=== PATIENT | female | born 1965 | race Caucasian/White ===

== ENCOUNTER 2020-02-11 12:09 | Emergency (ER) | payer MEDICARE ==
[~2020-02-11] VITALS: Ht 167.6 cm; Wt 83.9 kg
[~2020-02-11 12:09] MED LIST: FENOFIBRATE145 MG PO; LISINOPRIL10 MG PO; METHOTREXA25 MG/1 ML; NORCO 5-325 TA1 EACH PO; ULTRAM 50MG50 MG PO
--- OUTSIDE RECORDS SUMMARY | 2020-02-11 12:11 | XMS REPORT ---
[facility] Address Unknown Phone Unavailable Care Team Providers Care Contact Lens Lathe Operator Name Role Phone ER, PHYSICIAN PP Unavailable Payers Payer Name Policy Type Policy Number Effective Date Expiration Date Problems This patient has no known problems. Allergies, Adverse Reactions, Alerts Allergy Name Allergy Type Status Severity Reaction(s) Onset Date Inactive Date Treating Clinician Comments ibuprofen DA Active SV 2019-06-26 00:00:00 strawberry FA Active SV 2019-06-26 00:00:00 ibuprofen DA Active SV 2019-04-06 00:00:00 strawberry FA Active SV 2019-04-06 00:00:00 No Known Contrast Allergies DA Active U 2007-06-28 00:00:00 No Known Drug Allergies DA Active U 2007-06-28 00:00:00 No Known Food Allergies DA Active U 2007-06-28 00:00:00 No Known Other Allergies DA Active U 2007-06-28 00:00:00 No Known Drug Intolerances DA Active U 2007-06-27 00:00:00 Medications This patient has no known medications. Encounters Start Date/Time End Date/Time Encounter Type Admission Type Attending Clinicians Care Facility Care Department Encounter ID 2017-08-12 18:36:00 Inpatient [facility] MED [id number] Results Test Description Test Time Test Comments Text Results Atomic Results Result Comments - XR FLUOROSCOPY 0-60 MIN 2019-06-26 11:40:00 FAX: Cali Rich [phone] Stuart: St: REG FAX: Kisha Robin Ron [phone] Name: ROSLYN CRAIG [facility] : 1965 Age/S: 53/F [address] [place] [address] Unit #: [id number] Loc: [place] [address] Phys: Cali Young DPM Acct: [id number] Dis Date: Status: REG [facility] PHONE #: [phone] Exam Date: 06/26/2019 1135 FAX #: [phone] Reason: LEFT TALUS FRACTURE EXAMS: CPT CODE: [id number] XR FLUOROSCOPY 0-60 MIN 90202 Fluoroscopic guidance was provided by the radiology department for intraoperative procedure. Any images obtained will be interpreted by the performing physician. Fluoro time: 151 seconds. Reference air kerma: 2.30 mGy. END OF IMPRESSION SL: [id number] at 1140 Reported and signed by: Wali Carroll M.D. CC: Cail Young DPM; Robin Ron DO Techn ologist: RT Cipriano(Amelia) Trnscrd Date/Time/By: 06/26/2019 (1664) : By: Tor Orig Print D/T: S: 06/26/2019 (7185) PAGE 1 Signed Report HCG SERUM QUAL 2019-06-26 10:06:00 HCG SERUM QUAL (test code=HCGQL) SERUM NEGATIVE NEGATIVE COMMENTS: PRE-OP PROTOCALCBC W/AUTO [id number] 14:04:00* Test Item Value Reference Range Comments WHITE BLOOD CELL (test code=WBC) 11.62 x10 3/uL 4.5-11.0 RED BLOOD CELL (test code=RBC) 3.45 x10 6/uL 3.54-5.02 HEMOGLOBIN (test code=HGB) 10.8 g/dL 11.0-15.0 HEMATOCRIT (test code=HCT) 33.9 % 33.0-45.0 MEAN CELL VOLUME (test code=MCV) 98.3 fL 81.0-99.0 MEAN CELL HGB (test code=MCH) 31.3 pg 27.0-33.0 MEAN CELL HGB CONCETRATION (test code=MCHC) 31.9 g/dL 33.0-37.0 RED CELL DISTRIBUTION WIDTH CV (test code=RDW) 17.3 % 11.5-14.5 RED CELL DISTRIBUTION WIDTH SD (test code=RDW-SD) 60.0 fL 37.0-54.0 PLATELET COUNT (test code=PLT) 480 x10 3/uL 150-400 MEAN PLATELET VOLUME (test code=MPV) 10.8 fL 7.0-9.0 NEUTROPHIL % (test code=NT%) 52.9 % 56.0-77.0 IMMATURE GRANULOCYTE % (test code=IG%) 0.7 % 0.0-2.0 LYMPHOCYTE % (test code=LY%) 38.1 % 14.0-32.0 MONOCYTE % (test code=MO%) 6.2 % 4.8-9.0 EOSINOPHIL % (test code=EO%) 1.7 % 0.3-3.7 BASOPHIL % (test code=BA%) 0.4 % 0.0-2.0 NUCLEATED RBC % (test code=NRBC%) 0.0 % 0-0 NEUTROPHIL # (test code=NT#) 6.14 x10 3/uL 2.0-7.6 IMMATURE GRANULOCYTE # (test code=IG#) 0.08 x10 3/uL 0.00-0.03 LYMPHOCYTE # (test code=LY#) 4.43 x10 3/uL 1.0-3.8 MONOCYTE # (test code=MO#) 0.72 x10 3/uL 0.1-0.8 EOSINOPHIL # (test code=EO#) 0.20 x10 3/uL 0.0-0.2 BASOPHIL # (test code=BA#) 0.05 x10 3/uL 0.0-0.2 NUCLEATED RBC # (test code=NRBC#) 0.00 x10 3/uL 0.0-0.1 MANUAL DIFF REQUIRED (test code=MDIFF) NO SLIDE REVIEWED, CONSISTENT WITH AUTO DIFF.Previously reported result: NO Edited by: DEUCE on 06/20/19:426586 1403: MAN DIFF NEEDED previously reported as: NO - XR CHEST 2 [id number] 13:31:00 FAX: Cali Rich [phone] Stuart: St: PRE FAX: Robin Way [phone] FAX: Mague Askew Name: ROSLYN CRAIG [facility] : 1965 Age/S: 53/F [address] [place] [address] Unit #: [id number] Loc: [place] [address] Phys: Mague Askew S[employer]ER Acct: [id number] Dis Date: Status: PRE SDC PH ONE #: [phone] Exam Date: 06/20/2019 1323 FAX #: [phone] Reason: PRE-OP ORIF TALAR FRACTURE EXAMS: CPT CODE: [id number] XR CHEST 2 V 29918 CLINICAL HISTO RY: PRE-OP ORIF TALAR FRACTURE COMPARISON: April 06, 2019 at 1103 PA and lateral films of the chest demonstrate that heart size is normal. Interstitial opacities are present bilaterally, unchanged since previous examination. Calcified granuloma is noted on the right side. B lunting of left costophrenic angle is pronounced on current examination in dicating class pleural effusion. No other significant interval change is noted. IMPRESSION: 1. Persistent bilateral interstitial opacities, unchanged since previous examination. 2. Decreased pleural effusion compared to previous examination. Electronically Si gned by Meli Bob on 06/20/2019 at 1331 Reported and signed by: Lan Bob M.D. CC: Cali Young DPM; Robin Ron DO; Mague Askew NP Technologist: RT Cipriano(Amelia) Trnscrd Date/Time/By: 06/20/2019 (6314) : By: Curt Orig Print D/T: S: 06/20/2019 (3728) PAGE 1 Signed Report BASIC METABOLIC [id number] 13:04:00* Test Item Value Reference Range Comments SODIUM (test code=NA) 141 mEq/L 134-147 POTASSIUM (test code=K) 4.0 mEq/L 3.4-5.0 CHLORIDE (test code=CL) 109 mEq/L 100-108 CARBON DIOXIDE (test code=CO2) 27 mEq/L 21-33 ANION GAP (test code=GAP) 9 0-20 GLUCOSE (test code=GLU) 82 mg/dL 70-110 BLOOD UREA NITROGEN (test code=BUN) 20 mg/dL 7-18 GLOMERULAR FILTRATION RATE (test code=GFR) 46.6 90-95 Units of measure=ml/min/1.73 m2 CREATININE (test code=CREAT) 1.2 mg/dL 0.6-1.3 CALCIUM (test code=CA) 8.9 mg/dL 8.0-10.5 HCG SERUM [id number] 13:04:00* Test Item Value Reference Range Comments HCG SERUM QUAL (test code=HCGQL) SERUM NEGATIVE NEGATIVE CBC W/AUTO [id number] 13:03:00* Test Item Value Reference Range Comments WHITE BLOOD CELL (test code=WBC) 11.62 x10 3/uL 4.5-11.0 RED BLOOD CELL (test code=RBC) 3.45 x10 6/uL 3.54-5.02 HEMOGLOBIN (test code=HGB) 10.8 g/dL 11.0-15.0 HEMATOCRIT (test code=HCT) 33.9 % 33.0-45.0 MEAN CELL VOLUME (test code=MCV) 98.3 fL 81.0-99.0 MEAN CELL HGB (test code=MCH) 31.3 pg 27.0-33.0 MEAN CELL HGB CONCETRATION (test code=MCHC) 31.9 g/dL 33.0-37.0 RED CELL DISTRIBUTION WIDTH CV (test code=RDW) 17.3 % 11.5-14.5 RED CELL DISTRIBUTION WIDTH SD (test code=RDW-SD) 60.0 fL 37.0-54.0 PLATELET COUNT (test code=PLT) 480 x10 3/uL 150-400 MEAN PLATELET VOLUME (test code=MPV) 10.8 fL 7.0-9.0 NEUTROPHIL % (test code=NT%) 52.9 % 56.0-77.0 IMMATURE GRANULOCYTE % (test code=IG%) 0.7 % 0.0-2.0 LYMPHOCYTE % (test code=LY%) 38.1 % 14.0-32.0 MONOCYTE % (test code=MO%) 6.2 % 4.8-9.0 EOSINOPHIL % (test code=EO%) 1.7 % 0.3-3.7 BASOPHIL % (test code=BA%) 0.4 % 0.0-2.0 NUCLEATED RBC % (test code=NRBC%) 0.0 % 0-0 NEUTROPHIL # (test code=NT#) 6.14 x10 3/uL 2.0-7.6 IMMATURE GRANULOCYTE # (test code=IG#) 0.08 x10 3/uL 0.00-0.03 LYMPHOCYTE # (test code=LY#) 4.43 x10 3/uL 1.0-3.8 MONOCYTE # (test code=MO#) 0.72 x10 3/uL 0.1-0.8 EOSINOPHIL # (test code=EO#) 0.20 x10 3/uL 0.0-0.2 BASOPHIL # (test code=BA#) 0.05 x10 3/uL 0.0-0.2 NUCLEATED RBC # (test code=NRBC#) 0.00 x10 3/uL 0.0-0.1 MANUAL DIFF REQUIRED (test code=MDIFF) NO BASIC METABOLIC [id number] 12:57:00* Test Item Value Reference Range Comments SODIUM (test code=NA) mEq/L 134-147 POTASSIUM (test code=K) mEq/L 3.4-5.0 CHLORIDE (test code=CL) mEq/L 100-108 CARBON DIOXIDE (test code=CO2) mEq/L 21-33 ANION GAP (test code=GAP) 0-20 GLUCOSE (test code=GLU) mg/dL 70-110 BLOOD UREA NITROGEN (test code=BUN) mg/dL 7-18 GLOMERULAR FILTRATION RATE (test code=GFR) 90-95 CREATININE (test code=CREAT) mg/dL 0.6-1.3 CALCIUM (test code=CA) mg/dL 8.0-10.5 HCG SERUM [id number] 12:57:00* Test Item Value Reference Range Comments HCG SERUM QUAL (test code=HCGQL) SERUM NEGATIVE NEGATIVE - CT CHEST W/O [id number] 12:51:00 Name: ROSLYN CRAIG [facility] : 1965 Age/S: 53 / F [address] Unit #: [id number] Loc: [place] [address] Phys: Mainor Horner MD Acct: [id number] Dis Date: Status: REG CLI PHONE #: [phone] Exam Date: 06/06/2019 1224 FAX #: [phone] Reason: ABNORMAL FINDINGS EXAMS: CPT CODE: [id number] CT CHEST W/O CONTRAST 17569 TECHNIQUE: - CT CHEST W/O CONTRAST . This exam was performed using one or more of the following dose reduction techniques: Automated exposure control, adjustment of the mA and/ or kV according to patient size or use of iterative reconstruction technique. COMPARISON: Chest x-ray 04/06/2019 HISTORY: 53 years Female ABNORMAL FINDINGS FINDINGS: Lungs: Small left effusion. Left basilar atelectasis. Coarse densities bilaterally suggesting moderate to severe interstitial fibrosis most prominent in upper lobes. Severe emphysema. 5 mm calcified granuloma right midlung field anteriorly. 4 mm density subpleural space right upper lobe anteriorly. Series 3. Image 19. Mediastinum and Floridalma: No significant lymphadenopathy. No mediastinal or hilar mass. Small hiatal hernia. Pleura: No calcifications, thickening, or pneumothorax. Cardiovascular: Age appropriate. No significant abnormalities. Visualized Upper Abdomen: No sig nificant findings. Chest wall and bony structures: No abnormaliti es. IMPRESSION: Small left effusion. L eft basilar atelectasis. Coarse densities bilaterally suggesting moderat e to severe interstitial fibrosis most prominent in upper lobes. Severe emphysema. 4 mm density subpleural space right upper lobe anteriorly. Se min 3. Image 19. PAGE 1 Signed Report (CONTINUED) Name: ROSLYN CRAIG [facility] : 1965 Age/S: 53 / F [place] Moreno Unit #: [id number] Loc: [place] [address] Phys: Mainor Horner MD Acct: [id number] Dis Date: Status: REG CLI PHONE #: [phone] Exam Date: 06/06/2019 1224 FAX #: [phone] Reason: ABNORMAL FINDINGS EXAMS: CPT CODE: [id number] CT CHEST W/O CONTRAST 73947 < Continued> at 1251 Reported and signed by: Rocky To M.D. CC: Mainor Horner MD; Robin Ron Technologist:RT Rodney(R),CT CTDI: DLP: Trnscb Date/Time: 06/06/2019 (8341) t.TACOO Orig Print D/T: S: 06/06/2019 (7055) PAGE 2 Signed Report BASIC METABOLIC [id number] 13:16:00* Test Item Value Reference Range Comments SODIUM (test code=NA) 143 mEq/L 134-147 POTASSIUM (test code=K) 5.1 mEq/L 3.4-5.0 CHLORIDE (test code=CL) 113 mEq/L 100-108 CARBON DIOXIDE (test code=CO2) 24 mEq/L 21-33 ANION GAP (test code=GAP) 11 0-20 GLUCOSE (test code=GLU) 113 mg/dL 70-110 BLOOD UREA NITROGEN (test code=BUN) 20 mg/dL 7-18 GLOMERULAR FILTRATION RATE (test code=GFR) 46.6 90-95 Units of measure=ml/min/1.73 m2 CREATININE (test code=CREAT) 1.2 mg/dL 0.6-1.3 CALCIUM (test code=CA) 8.9 mg/dL 8.0-10.5 HCG SERUM [id number] 13:16:00* Test Item Value Reference Range Comments HCG SERUM QUAL (test code=HCGQL) SERUM NEGATIVE NEGATIVE BASIC METABOLIC [id number] 12:35:00* Test Item Value Reference Range Comments SODIUM (test code=NA) mEq/L 134-147 POTASSIUM (test code=K) mEq/L 3.4-5.0 CHLORIDE (test code=CL) mEq/L 100-108 CARBON DIOXIDE (test code=CO2) mEq/L 21-33 ANION GAP (test code=GAP) 0-20 GLUCOSE (test code=GLU) mg/dL 70-110 BLOOD UREA NITROGEN (test code=BUN) mg/dL 7-18 GLOMERULAR FILTRATION RATE (test code=GFR) 90-95 CREATININE (test code=CREAT) mg/dL 0.6-1.3 CALCIUM (test code=CA) mg/dL 8.0-10.5 HCG SERUM [id number] 12:35:00* Test Item Value Reference Range Comments HCG SERUM QUAL (test code=HCGQL) SERUM NEGATIVE NEGATIVE CBC W/AUTO [id number] 12:19:00* Test Item Value Reference Range Comments WHITE BLOOD CELL (test code=WBC) 13.35 x10 3/uL 4.5-11.0 RED BLOOD CELL (test code=RBC) 3.26 x10 6/uL 3.54-5.02 HEMOGLOBIN (test code=HGB) 10.3 g/dL 11.0-15.0 HEMATOCRIT (test code=HCT) 32.4 % 33.0-45.0 MEAN CELL VOLUME (test code=MCV) 99.4 fL 81.0-99.0 MEAN CELL HGB (test code=MCH) 31.6 pg 27.0-33.0 MEAN CELL HGB CONCETRATION (test code=MCHC) 31.8 g/dL 33.0-37.0 RED CELL DISTRIBUTION WIDTH CV (test code=RDW) 18.3 % 11.5-14.5 RED CELL DISTRIBUTION WIDTH SD (test code=RDW-SD) 65.0 fL 37.0-54.0 PLATELET COUNT (test code=PLT) 563 x10 3/uL 150-400 MEAN PLATELET VOLUME (test code=MPV) 10.5 fL 7.0-9.0 NEUTROPHIL % (test code=NT%) 80.1 % 56.0-77.0 IMMATURE GRANULOCYTE % (test code=IG%) 0.7 % 0.0-2.0 LYMPHOCYTE % (test code=LY%) 13.8 % 14.0-32.0 MONOCYTE % (test code=MO%) 5.2 % 4.8-9.0 EOSINOPHIL % (test code=EO%) 0.1 % 0.3-3.7 BASOPHIL % (test code=BA%) 0.1 % 0.0-2.0 NUCLEATED RBC % (test code=NRBC%) 0.0 % 0-0 NEUTROPHIL # (test code=NT#) 10.70 x10 3/uL 2.0-7.6 IMMATURE GRANULOCYTE # (test code=IG#) 0.09 x10 3/uL 0.00-0.03 LYMPHOCYTE # (test code=LY#) 1.84 x10 3/uL 1.0-3.8 MONOCYTE # (test code=MO#) 0.70 x10 3/uL 0.1-0.8 EOSINOPHIL # (test code=EO#) 0.01 x10 3/uL 0.0-0.2 BASOPHIL # (test code=BA#) 0.01 x10 3/uL 0.0-0.2 NUCLEATED RBC # (test code=NRBC#) 0.00 x10 3/uL 0.0-0.1 MANUAL DIFF REQUIRED (test code=MDIFF) NO - XR CHEST 2 [id number] 11:42:00 FAX: Cali Rich [phone] Stuart: St: PRE FAX: Robin Way [phone] Name: ROSLYN CRAIG [facility] : 1965 Age/S: 53/F [address] [place] [address] Unit #: [id number] Loc: [place] [address] Phys: Cali Young [facility] Acct: [id number] Dis Date: Status: PRE [facility] PHONE #: [phone] Exam Date: 04/06/2019 1114 FAX #: [phone] Reason: MEGHNA FX EXAMS: CPT CODE: [id number] XR CHEST 2 V 38043 CLINICAL HISTORY: TALUS FX COMPARISON: April 24, 2010 PA and lateral films of the chest demonstrate that heart size is at upper limits of normal. Atheromatous calcifications are present in aortic arch. Lung fraga demonstrate interstitial pulmonary opacities compatible with bilateral interstitial pulmonary edema. There is also, evidence of left pleural effusion. Changes of interstitial pulmonary edema and left pleural effusion represent interval change since previous examination. Mild degenerative changes are present in dorsal spine. Questionable arthritic changes are also present in right shoulder. IMPRESSION: Interval development of bilateral interstitial pulmonary opacities and left pleural effusion compatible with interstitial pulmonary edema or pulmonary venous hypertension. at 1142 R eported and signed by: Lan Bob M.D. CC: Cali chou DPM; Robin Ron DO Technologist: RT Kvng(R) Trnscrd Date/Time/By: 04/06/2019 (0562) : By: Sophie JACOBO Orig Print D/T: S: 04/06/2019 (9333) PAGE 1 Signed Report SCR MAMM BILATERAL OWEN CAD [id number] 09:28:39 - SCR MAMM BILATERAL OWEN CAD DIGITALBILATERAL DIGITAL SCREENING MAMMOGRAM 3D/2D WITH CAD: 01/12/2019CLINICAL: Asymptomatic. Digital breast tomosynthesis was performed in addition to routine CC and MLO views. Current mammographic images were evaluated by either a [employer] M-Vu or a [employer] ImageChecker CAD (computer aided detection system). Comparison is made to exams dated 07/08/2016 mammogram and 04/30/2015 mammogram - [facility]-. There are scattered fibroglandular tissues in both breasts. There are benign calcifications in both breasts. No suspicious mass, architectural distortion, malignant type calcification, or lymph node abnormality detected. Breast architecture is stable compared to prior exams.IMPRESSION: BENIGNThere is no mammographic evidence of malignancy. Resume annual screening mammography in one year. Jesus singh/cj:01/13/2019 09:28:39 copy to: Robin Ron DO, ph: [phone], fax: [phone] Technologist: Marisol BENTON, [facility] CenterFWletter sent: BIRADS 1-2 Normal Mammogram BI-RADS: 2 Benign
[2020-02-11] MEDS ORDERED: DIAZEPAM 5 MG TAB PO ONE (13:00)
[2020-02-11] MEDS ORDERED: DEXAMETHASONE SOD PHOS 10 MG/1 ML VIAL IM ONE (13:00)
[2020-02-11] MEDS ORDERED: HYDROCODONE/APAP 10MG-325MG TAB PO ONE (13:00)
--- NOTE | 2020-02-11 13:24 | Diagnostic Imaging Report ---
Lumbar spine complete CPT code: 29944 Indication: Back pain, right side to hip Technique: A.P., lateral and bilateral oblique views of the lumbar spine obtained. Comparison: None. Findings: There are five non rib bearing vertebral bodies. There are bilateral pedicle screws and vertical stabilizing bars in L4 and L5. The hardware is intact without lucency surrounding the screws to suggest loosening. There are 2 abandoned electrodes at the posterior elements of L3-4. There is mild levoscoliosis with the apex at L2-3. Grade 1 anterolisthesis of L4 on L5 and L5 on S1 of approximately 5 mm. The vertebral body heights are well maintained. There is disc space narrowing throughout the lower thoracic and upper lumbar spine, most significant at L3-4 and L5-S1. There is moderate to severe facet arthropathy at L4-5 and L5-S1 No abnormalities of the sacroiliac joints. The sacrum is normal. The bowel gas pattern is unremarkable. There are calcific is throughout the arterial structures. IMPRESSION: 1. Postoperative changes of the lower lumbar spine. No evidence of hardware failure 2. Grade 1 anterolisthesis of L4 on L5 and of L5 on S1. Mild levoscoliosis. No compression fractures. 3. Degenerative changes of the spine as described above. Signed by: Dr. Kit Styles MD on 02/11/2020 1:21 PM
[2020-02-11] MEDS ORDERED: KETOROLAC TROMETHAMINE 60 MG/2 ML VIAL IM ONE (13:30)
== END 2020-02-11 13:40 | disposition home or self-care (01) ==
LOC: ER 12:09
DX: S39.012A Strain of muscle, fascia and tendon of lower back, initial encounter (principal); M54.41 Lumbago with sciatica, right side; X50.0XXA Overexertion from strenuous movement or load, initial encounter; Y92.512 Supermarket, store or market as the place of occurrence of the external cause; I10 Essential (primary) hypertension; E78.5 Hyperlipidemia, unspecified; M06.9 Rheumatoid arthritis, unspecified
CPT/HCPCS: 72110; 99284; J1100; J1885

== ENCOUNTER 2024-09-29 15:41 | Inpatient (IN) | payer MEDICARE ==
[~2024-09-29] VITALS: Ht 165.1 cm; Wt 74.8 kg
[2024-09-29 16:06] VITALS: TEMP 97.7
[2024-09-29 16:39] LABS: COLOR,URINE YELLOW (YELLOW)
[2024-09-29 16:40] LABS: BILIRUBIN,URINE NEGATIVE (NEGATIVE); CLARITY,URINE TURBID (CLEAR); GLUCOSE, URINE NEGATIVE (NEGATIVE); KETONES,URINE NEGATIVE (NEGATIVE); LEUKOCYTE ESTERASE ,URINE MODERATE (NEGATIVE); NITRITE,URINE NEGATIVE (NEGATIVE); PH,URINE 6 (5 - 7); PROTEIN,URINE DIPSTICK 2+ (NEGATIVE); URINE UROBILINOGEN 0.2 mg/dL (0.2 - 1)
[2024-09-29 16:42] LABS: BACTERIA,URINE MODERATE /HPF; EPITHELIAL CELLS,URINE RARE /LPF; WBC,URINE (MAN) >50 /HPF (0-5)
[2024-09-29 17:35] LABS: BASOPHILS # (AUTO) 0.1 (0.0-0.1); BASOPHILS % 0.3 % (0.0-1.0); EOSINOPHILS # (AUTO) 0.2 (0.0-0.4); EOSINOPHILS % 0.7 % (0.0-6.0); HEMATOCRIT 42.3 % (34.2-44.1); HEMOGLOBIN 13.5 g/dL (12.0-16.0); LYMPHOCYTES # (AUTO) 3.7 (1.0-3.2); LYMPHOCYTES % 15.6 % (18.0-39.1); MEAN CORPUSCULAR HEMOGLOBIN 31.1 pg (28-32); MEAN CORPUSCULAR HGB CONC 31.9 g/dL (31-35); MEAN CORPUSCULAR VOLUME 97.5 fL (81-99); MONOCYTES # (AUTO) 1.6 (0.2-0.8); MONOCYTES % 6.8 % (4.4-11.3); NEUTROPHILS # (AUTO) 17.8 (2.1-6.9); NEUTROPHILS % 74.1 % (38.7-80.0); PLATELET COUNT 543 x10e3/uL (140-360); RED BLOOD COUNT 4.34 x10e6/uL (3.6-5.1); RED CELL DISTRIBUTION WIDTH 12.3 % (11.7-14.4); WHITE BLOOD COUNT 23.93 x10e3/uL (4.8-10.8)
[2024-09-29] MEDS: SODIUM CHLORIDE 0.9% 1000ML 1,000 ML IV STA (17:39)
[2024-09-29 17:44] LABS: INR 1.08; PROTHROMBIN TIME 14.6 seconds (11.9-14.5)
[2024-09-29 17:45] LABS: PARTIAL THROMBOPLASTIN TIME 25.5 seconds (23.8-35.5)
[2024-09-29 17:54] LABS: ALBUMIN 3.3 g/dL (3.5-5.0); ALBUMIN/GLOBULIN RATIO 0.7 (0.8-2.0); ANION GAP 21.1 mmol/L (8-16); BILIRUBIN,TOTAL 0.5 mg/dL (0.2-1.2); CALCIUM 9.9 mg/dL (8.4-10.2); CREATININE, SERUM 1.14 mg/dL (0.57-1.11); MAGNESIUM 1.9 MG/DL (1.3-2.1); POTASSIUM 4.1 mmol/L (3.5-5.1); TOTAL PROTEIN 7.8 g/dL (6.5-8.1)
[2024-09-29] MEDS ORDERED: IOPAMIDOL 370 MG/ML 100 ML INFUS..BTL INJ ONE (18:06)
[2024-09-29] MEDS: Vancomycin IV 1 GM in SODIUM CHLORIDE 0.9% 250ML 250 ML IV ONE (18:18)
[2024-09-29] MEDS: Morphine 4mg INJECTION 4 MG/ML INJ IV ONE ×2 (18:24→19:11)
[2024-09-29] MEDS: ONDANSETRON HCL INJ 2MG/ML 2ML 2 MG/ML VIAL IV ONE (19:11)
[2024-09-29 19:51] VITALS: PULSE 72; RESP 17
[2024-09-29] MEDS: KETOROLAC TROMETHAMINE 30 MG/ML VIAL IV ONE (20:14)
[2024-09-29 21:00] VITALS: BP 113/57; PULSE 62; RESP 18; TEMP 98.2; O2SAT 99
[2024-09-29 21:20] VITALS: BP 113/57; PULSE 62; RESP 18; TEMP 98.2; O2SAT 99
[2024-09-29] MEDS ORDERED: GABAPENTIN100 MG PO (22:11)
[2024-09-29] MEDS ORDERED: PREDNISONE5 MG PO (22:11)
[2024-09-29] MEDS ORDERED: GEMFIBROZIL600 MG PO (22:11)
[2024-09-29] MEDS ORDERED: AMLODIPINE BES2.5 MG PO (22:11)
[2024-09-29] MEDS ORDERED: LISINOPRIL20 MG PO (22:11)
[2024-09-29] MEDS ORDERED: FOLIC ACID0.4 MG PO (22:11)
[2024-09-29] MEDS ORDERED: PREGABALIN75 MG PO (22:11)
[2024-09-29] MEDS ORDERED: HYDROCODON-ACE1 EAC9 PO (22:11)
[2024-09-29] MEDS ORDERED: MONTELUKAST SOD10 MG PO (22:11)
[2024-09-29] MEDS ORDERED: PANTOPRAZOLE SO40 MG PO (22:11)
[2024-09-29] MEDS ORDERED: TRAZODONE HCL100 MG PO (22:11)
[2024-09-29] MEDS ORDERED: BUPROPION HCL200 MG PO (22:11)
[2024-09-29] MEDS ORDERED: METHOCARBAMOL750 MG PO (22:11)
[2024-09-29] MEDS: Morphine 2mg Syringe 2 MG/ML SYR IV PRN (22:18)
[2024-09-30] VITALS (8 sets, daily range): BP systolic 103–116; BP diastolic 64–81; PULSE 58–87; RESP 16–19; TEMP 97.8–98.7; O2SAT 95–98
[2024-09-30] MEDS: ONDANSETRON HCL INJ 2MG/ML 2ML 2 MG/ML VIAL IV PRN (07:58)
[2024-09-30 08:03] LABS: BASOPHILS # (AUTO) 0.1 (0.0-0.1); BASOPHILS % 0.7 % (0.0-1.0); EOSINOPHILS # (AUTO) 0.5 (0.0-0.4); EOSINOPHILS % 3.2 % (0.0-6.0); HEMATOCRIT 34.7 % (34.2-44.1); HEMOGLOBIN 11.3 g/dL (12.0-16.0); LYMPHOCYTES # (AUTO) 3.7 (1.0-3.2); MEAN CORPUSCULAR HEMOGLOBIN 31.7 pg (28-32); MEAN CORPUSCULAR HGB CONC 32.6 g/dL (31-35); MEAN CORPUSCULAR VOLUME 97.5 fL (81-99); MONOCYTES # (AUTO) 1.2 (0.2-0.8); MONOCYTES % 7.8 % (4.4-11.3); NEUTROPHILS # (AUTO) 9.2 (2.1-6.9); NEUTROPHILS % 60.8 % (38.7-80.0); PLATELET COUNT 473 x10e3/uL (140-360); RED BLOOD COUNT 3.56 x10e6/uL (3.6-5.1); RED CELL DISTRIBUTION WIDTH 12.6 % (11.7-14.4); WHITE BLOOD COUNT 15.22 x10e3/uL (4.8-10.8)
[2024-09-30 08:42] LABS: ALBUMIN 2.6 g/dL (3.5-5.0); ALBUMIN/GLOBULIN RATIO 0.7 (0.8-2.0); ANION GAP 17.3 mmol/L (8-16); BILIRUBIN,TOTAL 0.3 mg/dL (0.2-1.2); CALCIUM 8.8 mg/dL (8.4-10.2); CREATININE, SERUM 1.11 mg/dL (0.57-1.11); POTASSIUM 4.3 mmol/L (3.5-5.1); TOTAL PROTEIN 6.1 g/dL (6.5-8.1)
[2024-09-30] MEDS ORDERED: ALBUTEROL/IPRATROPIUM 3 ML NEB NEB PRN (10:15)
[2024-09-30] MEDS: HYDROCODONE/APAP 10MG-325MG TAB PO PRN (11:01)
[2024-09-30] MEDS: SODIUM CHLORIDE 0.9% 1000ML 1,000 ML IV SCH (11:08)
[2024-09-30] MEDS: Morphine 4mg INJECTION 4 MG/ML INJ IV PRN (12:04)
[2024-09-30] MEDS: METHOCARBAMOL 750 MG TAB PO SCH (15:00)
[2024-09-30] MEDS: GABAPENTIN 100 MG CAP PO SCH (15:00)
[2024-09-30] MEDS: GEMFIBROZIL 600 MG TAB PO SCH (16:03)
[2024-09-30] MEDS: TRAZODONE HCL 50 MG TAB PO SCH (22:23)
[2024-10-01] VITALS (8 sets, daily range): BP systolic 100–115; BP diastolic 59–73; PULSE 59–70; RESP 16–19; TEMP 97.9–98.6; O2SAT 92–100
[2024-10-01 07:29] LABS: BASOPHILS # (AUTO) 0.1 (0.0-0.1); BASOPHILS % 0.5 % (0.0-1.0); EOSINOPHILS # (AUTO) 0.4 (0.0-0.4); EOSINOPHILS % 4.2 % (0.0-6.0); HEMATOCRIT 35.6 % (34.2-44.1); LYMPHOCYTES # (AUTO) 2.6 (1.0-3.2); LYMPHOCYTES % 27.8 % (18.0-39.1); MEAN CORPUSCULAR HEMOGLOBIN 30.9 pg (28-32); MEAN CORPUSCULAR HGB CONC 30.9 g/dL (31-35); MONOCYTES # (AUTO) 0.8 (0.2-0.8); MONOCYTES % 8.6 % (4.4-11.3); NEUTROPHILS % 53.2 % (38.7-80.0); PLATELET COUNT 421 x10e3/uL (140-360); RED BLOOD COUNT 3.56 x10e6/uL (3.6-5.1); RED CELL DISTRIBUTION WIDTH 12.7 % (11.7-14.4); WHITE BLOOD COUNT 9.45 x10e3/uL (4.8-10.8)
[2024-10-01 07:48] LABS: ANION GAP 13.1 mmol/L (8-16); CALCIUM 8.3 mg/dL (8.4-10.2); CREATININE, SERUM 0.72 mg/dL (0.57-1.11); POTASSIUM 4.1 mmol/L (3.5-5.1)
[2024-10-01] MEDS: MONTELUKAST SODIUM 10 MG TAB PO SCH (10:18)
[2024-10-01] MEDS: FOLIC ACID 1 MG TAB PO SCH (10:19)
[2024-10-01] MEDS: PREDNISONE 5 MG TAB PO SCH (10:19)
[2024-10-01] MEDS: BUPROPION HCL SR 150 MG TAB PO SCH (13:39)
[2024-10-02] VITALS (8 sets, daily range): BP systolic 107–129; BP diastolic 64–78; PULSE 58–90; RESP 16–20; TEMP 97.7–98.4; O2SAT 97–100
[2024-10-03] VITALS (10 sets, daily range): BP systolic 111–134; BP diastolic 63–76; PULSE 58–88; RESP 18–21; TEMP 97–98.3; O2SAT 92–99
[2024-10-03] MEDS ORDERED: IOPAMIDOL 610MG/1ML 300 MG/ML VIAL IV ONE (06:11)
[2024-10-03] MEDS ORDERED: ZOLPIDEM TARTRATE 5 MG TAB PO PRN (07:30)
[2024-10-03] MEDS ORDERED: PROMETHAZINE HCL (IM) 25 MG/ML VIAL IM PRN (07:30)
[2024-10-03] MEDS ORDERED: BISACODYL 10 MG SUPP PR PRN (07:30)
[2024-10-03] MEDS: LACTATED RINGER'S 1,000 ML IV SCH (07:30)
[2024-10-03] MEDS ORDERED: HYDROCODONE/APAP 10MG-325MG TAB PO PRN ×2 (07:30→09:45)
[2024-10-03] MEDS ORDERED: Morphine 2mg Syringe 2 MG/ML SYR IV PRN (09:45)
[2024-10-03] MEDS: HYDROMORPHONE 1MG/1ML INJ ONE (10:06)
[2024-10-03] MEDS ORDERED: ONDANSETRON HCL INJ 2MG/ML 2ML 2 MG/ML VIAL ONE (11:26)
[2024-10-03] MEDS ORDERED: METOCLOPRAMIDE HCL 10 MG/2ML VIAL ONE (11:26)
[2024-10-03] MEDS ORDERED: SEVOFLURANE INHAL SOLN 250 ML PEN BTL ONE (11:26)
[2024-10-03] MEDS ORDERED: LIDOCAINE HCL 2% LOCAL INJ 5 ML SDV VIAL INJ ONE (11:26)
[2024-10-03] MEDS ORDERED: PROPOFOL IV EMULSION 10 MG/ML 20 ML VIAL ONE (11:26)
[2024-10-03] MEDS ORDERED: SCOPOLAMINE 1 MG PATCH ONE (11:26)
[2024-10-03] MEDS ORDERED: SUGAMMADEX SODIUM 200 MG/2 ML VIAL IV ONE (11:26)
[2024-10-03] MEDS ORDERED: ACETAMINOPHEN 1000 MG/100 ML IV ONE (11:26)
[2024-10-03] MEDS ORDERED: ROCURONIUM BROMIDE 10 MG/ML 5ML VIAL IV ONE (11:26)
[2024-10-03] MEDS ORDERED: FAMOTIDINE 20 MG/2 ML VIAL IV ONE (11:26)
[2024-10-03] MEDS ORDERED: DEXAMETHASONE SOD PHOS INJ 4 MG/ML SDV ONE (11:26)
[2024-10-03] MEDS: BUPIVACAINE LIPOSOME/PF 266 MG/20 ML IJ ONE (12:55)
[2024-10-03] MEDS ORDERED: MIDAZOLAM HCL 2 MG/2 ML VIAL ONE (15:12)
[2024-10-03] MEDS ORDERED: FENTANYL CITRATE/PF 100MCG/2 ML INJ ONE (15:12)
[2024-10-04] VITALS (9 sets, daily range): BP systolic 122–141; BP diastolic 61–81; PULSE 60–80; RESP 16–20; TEMP 97.9–100.3; O2SAT 93–98
[2024-10-04 07:39] LABS: BASOPHILS # (AUTO) 0.1 (0.0-0.1); BASOPHILS % 0.3 % (0.0-1.0); EOSINOPHILS # (AUTO) 0.5 (0.0-0.4); EOSINOPHILS % 2.6 % (0.0-6.0); HEMATOCRIT 34.9 % (34.2-44.1); HEMOGLOBIN 10.9 g/dL (12.0-16.0); LYMPHOCYTES # (AUTO) 2.3 (1.0-3.2); LYMPHOCYTES % 12.9 % (18.0-39.1); MEAN CORPUSCULAR HEMOGLOBIN 31.3 pg (28-32); MEAN CORPUSCULAR HGB CONC 31.2 g/dL (31-35); MEAN CORPUSCULAR VOLUME 100.3 fL (81-99); MONOCYTES # (AUTO) 1.3 (0.2-0.8); MONOCYTES % 7.2 % (4.4-11.3); NEUTROPHILS # (AUTO) 13.4 (2.1-6.9); NEUTROPHILS % 75.8 % (38.7-80.0); PLATELET COUNT 309 x10e3/uL (140-360); RED BLOOD COUNT 3.48 x10e6/uL (3.6-5.1); WHITE BLOOD COUNT 17.71 x10e3/uL (4.8-10.8)
[2024-10-04 08:12] LABS: ANION GAP 10.1 mmol/L (8-16); CALCIUM 8.4 mg/dL (8.4-10.2); CREATININE, SERUM 0.64 mg/dL (0.57-1.11); POTASSIUM 4.1 mmol/L (3.5-5.1)
[2024-10-04] MEDS: GABAPENTIN 300 MG CAP PO SCH (08:30)
[2024-10-04] MEDS ORDERED: PROMETHAZINE 12.5MG/ NACL 0.9% 12.5 MG/50 ML BAG IV PRN (08:30)
[2024-10-04] MEDS: SODIUM CHLORIDE 0.9% 1000ML 1,000 ML IV SCH (09:08)
[2024-10-04] MEDS: HYDROMORPHONE 1MG/1ML INJ IV PRN (09:09)
[2024-10-04] MEDS: HYDROCODONE/APAP 10MG-325MG TAB PO SCH (09:22)
[2024-10-04] MEDS: GABAPENTIN 100 MG CAP PO SCH (12:18)
[2024-10-04] MEDS: ACETAMINOPHEN 325 MG TAB PO PRN (21:32)
[2024-10-05] VITALS (10 sets, daily range): BP systolic 95–133; BP diastolic 63–80; PULSE 60–81; RESP 16–21; TEMP 98.7–99.8; O2SAT 92–100
[2024-10-05 05:34] LABS: BASOPHILS # (AUTO) 0.1 (0.0-0.1); BASOPHILS % 0.4 % (0.0-1.0); EOSINOPHILS # (AUTO) 0.6 (0.0-0.4); EOSINOPHILS % 3.4 % (0.0-6.0); HEMATOCRIT 32.3 % (34.2-44.1); HEMOGLOBIN 10.3 g/dL (12.0-16.0); LYMPHOCYTES # (AUTO) 2.5 (1.0-3.2); LYMPHOCYTES % 15.2 % (18.0-39.1); MEAN CORPUSCULAR HEMOGLOBIN 31.6 pg (28-32); MEAN CORPUSCULAR HGB CONC 31.9 g/dL (31-35); MEAN CORPUSCULAR VOLUME 99.1 fL (81-99); MONOCYTES # (AUTO) 1.3 (0.2-0.8); MONOCYTES % 8.2 % (4.4-11.3); NEUTROPHILS # (AUTO) 11.7 (2.1-6.9); NEUTROPHILS % 71.5 % (38.7-80.0); PLATELET COUNT 277 x10e3/uL (140-360); RED BLOOD COUNT 3.26 x10e6/uL (3.6-5.1); WHITE BLOOD COUNT 16.39 x10e3/uL (4.8-10.8)
[2024-10-05 05:50] LABS: ANION GAP 12.5 mmol/L (8-16); CALCIUM 8.2 mg/dL (8.4-10.2); CREATININE, SERUM 0.62 mg/dL (0.57-1.11); POTASSIUM 3.5 mmol/L (3.5-5.1)
[2024-10-05] MEDS: ONDANSETRON HCL INJ 2MG/ML 2ML 2 MG/ML VIAL IV PRN (13:03)
[2024-10-05] MEDS ORDERED: HEPARIN SOD/DEXTROSE 5% 25000 UNIT/250 ML BAG IV SCH (15:00)
[2024-10-05 15:01] LABS: FERRITIN 197.78 ng/mL (4.63-204.00)
[2024-10-05 16:05] LABS: INR 1.39; PARTIAL THROMBOPLASTIN TIME 29.7 seconds (23.8-35.5); PROTHROMBIN TIME 17.8 seconds (11.9-14.5)
[2024-10-05] MEDS: HEPARIN SOD (PORCINE) 1000 UNIT/ML SDV IV ONE (16:21)
[2024-10-05] MEDS: HEPARIN 25,000 UNIT/D5W 250ML 250 ML IV SCH (16:24)
[2024-10-05] MEDS ORDERED: ENOXAPARIN SOD INJ 40 MG/0.4 ML SYR SC SCH (17:00)
[2024-10-05] MEDS: LORAZEPAM 0.5 MG TAB PO PRN (17:43)
[2024-10-06] VITALS (10 sets, daily range): BP systolic 92–128; BP diastolic 57–79; PULSE 58–70; RESP 18–21; TEMP 98.2–99.1; O2SAT 95–100
[2024-10-06 06:18] LABS: BASOPHILS # (AUTO) 0.1 (0.0-0.1); BASOPHILS % 0.5 % (0.0-1.0); EOSINOPHILS # (AUTO) 0.5 (0.0-0.4); EOSINOPHILS % 4.1 % (0.0-6.0); HEMATOCRIT 31.3 % (34.2-44.1); HEMOGLOBIN 9.7 g/dL (12.0-16.0); LYMPHOCYTES # (AUTO) 2.7 (1.0-3.2); LYMPHOCYTES % 23.2 % (18.0-39.1); MEAN CORPUSCULAR HEMOGLOBIN 31.5 pg (28-32); MEAN CORPUSCULAR VOLUME 101.6 fL (81-99); MONOCYTES % 8.9 % (4.4-11.3); NEUTROPHILS # (AUTO) 7.1 (2.1-6.9); NEUTROPHILS % 61.9 % (38.7-80.0); PLATELET COUNT 230 x10e3/uL (140-360); RED BLOOD COUNT 3.08 x10e6/uL (3.6-5.1); RED CELL DISTRIBUTION WIDTH 13.3 % (11.7-14.4)
[2024-10-06 06:29] LABS: ANION GAP 10.7 mmol/L (8-16); CALCIUM 7.8 mg/dL (8.4-10.2); CREATININE, SERUM 0.57 mg/dL (0.57-1.11); POTASSIUM 3.7 mmol/L (3.5-5.1)
[2024-10-06] MEDS: ENOXAPARIN INJ 80 MG/0.8 ML SYR SC SCH (12:03)
[2024-10-06] MEDS: OXYCODONE/ACETAMINOPHEN 5-325 1 EACH TABLET PO SCH (12:45)
[2024-10-06] MEDS: SODIUM FERRIC GLUCONATE COMPLX 125 MG in SODIUM CHLORIDE 0.9% 100 ML IV ONE (15:23)
[2024-10-07] VITALS (9 sets, daily range): BP systolic 102–128; BP diastolic 68–81; PULSE 54–74; RESP 16–18; TEMP 98.2–98.6; O2SAT 94–98
[2024-10-07 09:18] LABS: BASOPHILS # (AUTO) 0.1 (0.0-0.1); BASOPHILS % 0.4 % (0.0-1.0); EOSINOPHILS # (AUTO) 0.5 (0.0-0.4); EOSINOPHILS % 4.2 % (0.0-6.0); HEMATOCRIT 31.6 % (34.2-44.1); HEMOGLOBIN 9.8 g/dL (12.0-16.0); LYMPHOCYTES # (AUTO) 2.8 (1.0-3.2); LYMPHOCYTES % 23.9 % (18.0-39.1); MEAN CORPUSCULAR HEMOGLOBIN 31.1 pg (28-32); MEAN CORPUSCULAR VOLUME 100.3 fL (81-99); MONOCYTES # (AUTO) 0.8 (0.2-0.8); NEUTROPHILS # (AUTO) 7.5 (2.1-6.9); NEUTROPHILS % 63.7 % (38.7-80.0); PLATELET COUNT 266 x10e3/uL (140-360); RED BLOOD COUNT 3.15 x10e6/uL (3.6-5.1); RED CELL DISTRIBUTION WIDTH 13.2 % (11.7-14.4); WHITE BLOOD COUNT 11.78 x10e3/uL (4.8-10.8)
[2024-10-07 09:31] LABS: ANION GAP 11.7 mmol/L (8-16); CREATININE, SERUM 0.61 mg/dL (0.57-1.11); POTASSIUM 3.7 mmol/L (3.5-5.1)
[2024-10-07] MEDS: APIXABAN 5 MG TABLET PO SCH (10:52)
[2024-10-07] MEDS: SENNA-S TABLET PO SCH (10:52)
[2024-10-08] VITALS (8 sets, daily range): BP systolic 111–163; BP diastolic 70–97; PULSE 6–72; RESP 16–18; TEMP 98–99; O2SAT 93–98
[2024-10-08] MEDS ORDERED: SODIUM CHLORIDE 0.9% 250ML 250 ML ONE (07:22)
[2024-10-08] MEDS: PREDNISONE 5 MG TAB PO SCH (07:30)
[2024-10-08] MEDS: PANTOPRAZOLE SOD 40 MG TABEC PO SCH (07:30)
[2024-10-08] MEDS ORDERED: BISACODYL 5 MG TAB EC PO PRN (08:30)
[2024-10-08] MEDS ORDERED: MAGNESIUM HYDROXIDE 30 ML UDC PO PRN (08:30)
[2024-10-08] MEDS: POLYETHYLENE GLYCOL 3350 17 GM PACK PO SCH (08:49)
[2024-10-08] MEDS: BISACODYL 5 MG TAB EC PO ONE (08:49)
[2024-10-08] MEDS: MAGNESIUM HYDROXIDE 30 ML UDC PO ONE (15:22)
[2024-10-08] MEDS: HYDRALAZINE HCL 20 MG/ML VIAL IV PRN (20:24)
[2024-10-09] VITALS (9 sets, daily range): BP systolic 124–145; BP diastolic 67–88; PULSE 65–82; RESP 16–21; TEMP 98.2–98.6; O2SAT 92–100
[2024-10-09] MEDS: SODIUM CHLORIDE 0.9% 250ML 250 ML ONE (00:10)
[2024-10-09 05:35] LABS: BASOPHILS # (AUTO) 0.1 (0.0-0.1); BASOPHILS % 0.5 % (0.0-1.0); EOSINOPHILS # (AUTO) 0.5 (0.0-0.4); EOSINOPHILS % 4.1 % (0.0-6.0); HEMATOCRIT 33.2 % (34.2-44.1); HEMOGLOBIN 10.8 g/dL (12.0-16.0); LYMPHOCYTES # (AUTO) 2.6 (1.0-3.2); LYMPHOCYTES % 21.5 % (18.0-39.1); MEAN CORPUSCULAR HEMOGLOBIN 31.8 pg (28-32); MEAN CORPUSCULAR HGB CONC 32.5 g/dL (31-35); MEAN CORPUSCULAR VOLUME 97.6 fL (81-99); MONOCYTES # (AUTO) 0.9 (0.2-0.8); MONOCYTES % 7.1 % (4.4-11.3); NEUTROPHILS % 65.9 % (38.7-80.0); PLATELET COUNT 316 x10e3/uL (140-360); RED CELL DISTRIBUTION WIDTH 13.7 % (11.7-14.4); WHITE BLOOD COUNT 12.14 x10e3/uL (4.8-10.8)
[2024-10-09 05:54] LABS: ANION GAP 12.5 mmol/L (8-16); CALCIUM 8.5 mg/dL (8.4-10.2); CREATININE, SERUM 0.64 mg/dL (0.57-1.11); POTASSIUM 3.5 mmol/L (3.5-5.1)
[2024-10-09] MEDS: HYDROMORPHONE 1MG/1ML INJ IV PRN (15:45)
[2024-10-10] VITALS: BP 138/76; PULSE 56; RESP 18; TEMP 98.7; O2SAT 96
[2024-10-10 04:00] VITALS: BP 160/91; PULSE 71; RESP 18; TEMP 99.4; O2SAT 98
[2024-10-10 07:08] VITALS: PULSE 78; RESP 20; O2SAT 95
[2024-10-10 07:49] VITALS: BP 112/68; PULSE 68; RESP 19; TEMP 99.1; O2SAT 95
[2024-10-10 11:14] VITALS: BP 108/76; PULSE 65; RESP 20; TEMP 98.7; O2SAT 94
== END 2024-10-10 13:20 | disposition home or self-care (01) | DRG 660 ==
LOC: ER 15:56 → ERHOLD 19:04 → MED/SURG 20:54
PROVIDERS: ADMIT Internal Medicine; ATTEND Internal Medicine
PROC: 0T788DZ Dilation of Bilateral Ureters with Intraluminal Device, Via Natural or Artificial Opening Endoscopic (ICD-10-PCS; 2024-10-03)
PROC: BT141ZZ Fluoroscopy of Kidneys, Ureters and Bladder using Low Osmolar Contrast (ICD-10-PCS; 2024-10-03)
PROC: BT101ZZ Fluoroscopy of Bladder using Low Osmolar Contrast (ICD-10-PCS; 2024-10-03)
PROC: 0UT70ZZ Resection of Bilateral Fallopian Tubes, Open Approach (ICD-10-PCS; principal; 2024-10-03 07:32)
PROC: 0UT20ZZ Resection of Bilateral Ovaries, Open Approach (ICD-10-PCS; 2024-10-03 07:32)
DX: N13.6 Pyonephrosis (principal); I82.612 Acute embolism and thrombosis of superficial veins of left upper extremity; I82.A12 Acute embolism and thrombosis of left axillary vein; I82.B12 Acute embolism and thrombosis of left subclavian vein; N83.202 Unspecified ovarian cyst, left side; R33.9 Retention of urine, unspecified; D64.9 Anemia, unspecified; G89.18 Other acute postprocedural pain; K59.09 Other constipation; N32.0 Bladder-neck obstruction; R32 Unspecified urinary incontinence; N13.70 Vesicoureteral-reflux, unspecified; N81.6 Rectocele; N81.10 Cystocele, unspecified; N95.2 Postmenopausal atrophic vaginitis; R31.29 Other microscopic hematuria; R82.81 Pyuria; N85.8 Other specified noninflammatory disorders of uterus; I10 Essential (primary) hypertension; E78.00 Pure hypercholesterolemia, unspecified; J44.9 Chronic obstructive pulmonary disease, unspecified; Z87.891 Personal history of nicotine dependence; M06.9 Rheumatoid arthritis, unspecified; G62.9 Polyneuropathy, unspecified; M51.369 Other intervertebral disc degeneration, lumbar region without mention of lumbar back pain or lower extremity pain; G89.29 Other chronic pain; E66.9 Obesity, unspecified; Z68.27 Body mass index [BMI] 27.0-27.9, adult; Z71.3 Dietary counseling and surveillance; Z87.11 Personal history of peptic ulcer disease; Z79.899 Other long term (current) drug therapy; Z79.52 Long term (current) use of systemic steroids
CPT/HCPCS: 36415; 51700; 74018; 74177; 74420; 80048; 80053; 80202; 81001; 82607; 82728; 82746; 83540; 83615; 83735; 84466; 85025; 85045; 85610; 85730; 87086; 88304; 88307; 93971; 94799; 99284; C1758; C1769; C2617; J0360; J0690; J0692; J0696; J1100; J1171; J1644; J1650; J1885; J2003; J2250; J2270; J2405; J2470; J2543; J2550; J2765; J2916; J7030; J7050; J7512; Q9967

== ENCOUNTER 2024-11-11 12:47 | Inpatient (IN) | payer MEDICARE ==
[~2024-11-11] VITALS: Ht 165.1 cm; Wt 71.2 kg
[~2024-11-11 12:47] MED LIST changes: +AMLODIPINE BES2.5 MG PO; +BUPROPION HCL200 MG PO; +FOLIC ACID0.4 MG PO; +GABAPENTIN100 MG PO; +GEMFIBROZIL600 MG PO; +HYDROCODON-ACE1 EAC9 PO; +LISINOPRIL20 MG PO; +METHOCARBAMOL750 MG PO; +MONTELUKAST SOD10 MG PO; +PANTOPRAZOLE SO40 MG PO; +PREDNISONE5 MG PO; +PREGABALIN75 MG PO; +TRAZODONE HCL100 MG PO
[2024-11-11 13:49] LABS: BASOPHILS % 0.3 % (0.0-1.0); EOSINOPHILS % 0.3 % (0.0-6.0); HEMATOCRIT 34.6 % (34.2-44.1); LYMPHOCYTES # (AUTO) 1.7 (1.0-3.2); LYMPHOCYTES % 12.6 % (18.0-39.1); MEAN CORPUSCULAR HEMOGLOBIN 30.6 pg (28-32); MEAN CORPUSCULAR HGB CONC 31.8 g/dL (31-35); MEAN CORPUSCULAR VOLUME 96.4 fL (81-99); MONOCYTES # (AUTO) 0.6 (0.2-0.8); MONOCYTES % 4.5 % (4.4-11.3); NEUTROPHILS # (AUTO) 11.1 (2.1-6.9); NEUTROPHILS % 81.9 % (38.7-80.0); PLATELET COUNT 444 x10e3/uL (140-360); RED BLOOD COUNT 3.59 x10e6/uL (3.6-5.1); RED CELL DISTRIBUTION WIDTH 12.9 % (11.7-14.4); WHITE BLOOD COUNT 13.56 x10e3/uL (4.8-10.8)
[2024-11-11] MEDS: SODIUM CHLORIDE 0.9% 1000ML 1,000 ML IV STA ×2 (13:50→15:05)
[2024-11-11] MEDS: Morphine 4mg INJECTION 4 MG/ML INJ IV STA (13:51)
[2024-11-11] MEDS: ONDANSETRON HCL INJ 2MG/ML 2ML 2 MG/ML VIAL IV STA (13:53)
[2024-11-11 13:55] LABS: CLARITY,URINE HAZY (CLEAR); COLOR,URINE PINK (YELLOW)
[2024-11-11 13:56] LABS: BILIRUBIN,URINE NEGATIVE (NEGATIVE); GLUCOSE, URINE NEGATIVE (NEGATIVE); KETONES,URINE NEGATIVE (NEGATIVE); LEUKOCYTE ESTERASE ,URINE LARGE (NEGATIVE); NITRITE,URINE NEGATIVE (NEGATIVE); PH,URINE 6 (5 - 7); PROTEIN,URINE DIPSTICK 2+ (NEGATIVE); URINE UROBILINOGEN 0.2 mg/dL (0.2 - 1)
[2024-11-11 14:03] LABS: INR 1.12; PROTHROMBIN TIME 15.1 seconds (11.9-14.5)
[2024-11-11 14:04] LABS: PARTIAL THROMBOPLASTIN TIME 31.9 seconds (23.8-35.5)
[2024-11-11 14:05] LABS: WBC,URINE (MAN) >50 /HPF (0-5)
[2024-11-11 14:06] LABS: BACTERIA,URINE MODERATE /HPF; EPITHELIAL CELLS,URINE RARE /LPF; RBC,URINE >50 /HPF (0-5)
[2024-11-11 14:07] LABS: YEAST,URINE MANY
[2024-11-11 14:14] LABS: ALBUMIN 3.4 g/dL (3.5-5.0); ALBUMIN/GLOBULIN RATIO 0.9 (0.8-2.0); ANION GAP 15.8 mmol/L (8-16); BILIRUBIN,TOTAL 0.4 mg/dL (0.2-1.2); CALCIUM 9.3 mg/dL (8.4-10.2); CREATININE, SERUM 0.83 mg/dL (0.57-1.11); MAGNESIUM 1.7 MG/DL (1.3-2.1); POTASSIUM 4.8 mmol/L (3.5-5.1); TOTAL PROTEIN 7.2 g/dL (6.5-8.1)
[2024-11-11 14:20] LABS: TROPONIN I 0.008 ng/mL (0-0.300)
[2024-11-11] MEDS ORDERED: Morphine 4mg INJECTION 4 MG/ML INJ IV PRN (15:00)
[2024-11-11] MEDS: Vancomycin IV 1 GM in SODIUM CHLORIDE 0.9% 250ML 250 ML IV ONE (15:04)
[2024-11-11 16:00] VITALS: PULSE 67; RESP 16; TEMP 98.5
[2024-11-11] MEDS: ONDANSETRON HCL INJ 2MG/ML 2ML 2 MG/ML VIAL IV PRN (17:26)
[2024-11-11] MEDS: HYDROMORPHONE 1MG/1ML INJ IV PRN (17:27)
[2024-11-11] MEDS: SODIUM CHLORIDE 0.9% 1000ML 1,000 ML IV SCH (17:48)
[2024-11-11] MEDS: FLUCONAZOLE 100 MG/NS 50 ML 50 ML IV SCH (17:51)
[2024-11-11 17:58] VITALS: BP 122/70; PULSE 67; RESP 16; TEMP 98.2
[2024-11-11 17:59] VITALS: BP 122/70; PULSE 67; RESP 16; TEMP 98.2; O2SAT 100
[2024-11-11 18:10] VITALS: BP 122/70; PULSE 67; RESP 16; TEMP 98.2; O2SAT 100
[2024-11-11 19:20] VITALS: BP 114/67; PULSE 69; RESP 18; TEMP 98.6; O2SAT 100
[2024-11-11 21:00] VITALS: BP 114/67; PULSE 69; RESP 18; TEMP 98.6; O2SAT 100
[2024-11-12] VITALS (8 sets, daily range): BP systolic 91–129; BP diastolic 67–78; PULSE 62–81; RESP 17–20; TEMP 98.2–99.4; O2SAT 97–100
[2024-11-12 08:20] LABS: BASOPHILS # (AUTO) 0.1 (0.0-0.1); BASOPHILS % 0.5 % (0.0-1.0); EOSINOPHILS # (AUTO) 0.4 (0.0-0.4); EOSINOPHILS % 3.7 % (0.0-6.0); HEMATOCRIT 30.5 % (34.2-44.1); HEMOGLOBIN 9.7 g/dL (12.0-16.0); LYMPHOCYTES # (AUTO) 3.1 (1.0-3.2); LYMPHOCYTES % 33.4 % (18.0-39.1); MEAN CORPUSCULAR HEMOGLOBIN 30.3 pg (28-32); MEAN CORPUSCULAR HGB CONC 31.8 g/dL (31-35); MEAN CORPUSCULAR VOLUME 95.3 fL (81-99); MONOCYTES # (AUTO) 0.9 (0.2-0.8); MONOCYTES % 9.1 % (4.4-11.3); NEUTROPHILS % 52.9 % (38.7-80.0); PLATELET COUNT 402 x10e3/uL (140-360); RED CELL DISTRIBUTION WIDTH 13.2 % (11.7-14.4); WHITE BLOOD COUNT 9.38 x10e3/uL (4.8-10.8)
[2024-11-12 08:55] LABS: ALBUMIN 2.7 g/dL (3.5-5.0); ALBUMIN/GLOBULIN RATIO 0.9 (0.8-2.0); BILIRUBIN,TOTAL 0.2 mg/dL (0.2-1.2); CALCIUM 8.5 mg/dL (8.4-10.2); CREATININE, SERUM 0.63 mg/dL (0.57-1.11); TOTAL PROTEIN 5.6 g/dL (6.5-8.1)
[2024-11-12] MEDS: PHENAZOPYRIDINE HCL 100 MG TAB PO PRN (10:01)
[2024-11-12] MEDS ORDERED: MAGNESIUM HYDROXIDE 30 ML UDC PO PRN (11:30)
[2024-11-12] MEDS: SENNA-S TABLET PO SCH (11:30)
[2024-11-12] MEDS: POLYETHYLENE GLYCOL 3350 17 GM PACK PO SCH (11:30)
[2024-11-12] MEDS ORDERED: BISACODYL 5 MG TAB EC PO PRN (11:30)
[2024-11-12] MEDS ORDERED: ELIQUIS5 MG PO (12:46)
[2024-11-12] MEDS ORDERED: SULFASALAZINE500 MG PO (12:50)
[2024-11-12] MEDS: GABAPENTIN 100 MG CAP PO SCH (15:36)
[2024-11-12] MEDS: METHOCARBAMOL 750 MG TAB PO SCH (15:36)
[2024-11-12] MEDS: CEFTRIAXONE 2 GM in SODIUM CHLORIDE 0.9% 100 ML IV SCH (16:41)
[2024-11-12] MEDS: ENOXAPARIN SOD INJ 40 MG/0.4 ML SYR SC SCH (16:42)
[2024-11-12] MEDS: GEMFIBROZIL 600 MG TAB PO SCH (17:00)
[2024-11-12] MEDS: MONTELUKAST SODIUM 10 MG TAB PO SCH (20:36)
[2024-11-12] MEDS: TRAZODONE HCL 50 MG TAB PO SCH (20:37)
[2024-11-13 00:55] VITALS: BP 128/69; PULSE 86; RESP 18; TEMP 99.3; O2SAT 97
[2024-11-13 05:20] VITALS: BP 110/74; PULSE 70; RESP 18; TEMP 98.8; O2SAT 98
[2024-11-13 06:22] LABS: BASOPHILS # (AUTO) 0.1 (0.0-0.1); BASOPHILS % 0.6 % (0.0-1.0); EOSINOPHILS # (AUTO) 0.4 (0.0-0.4); EOSINOPHILS % 4.2 % (0.0-6.0); HEMATOCRIT 31.7 % (34.2-44.1); HEMOGLOBIN 9.5 g/dL (12.0-16.0); LYMPHOCYTES # (AUTO) 3.2 (1.0-3.2); LYMPHOCYTES % 31.4 % (18.0-39.1); MEAN CORPUSCULAR HEMOGLOBIN 30.1 pg (28-32); MEAN CORPUSCULAR VOLUME 100.3 fL (81-99); MONOCYTES # (AUTO) 0.9 (0.2-0.8); MONOCYTES % 8.7 % (4.4-11.3); NEUTROPHILS # (AUTO) 5.6 (2.1-6.9); NEUTROPHILS % 54.6 % (38.7-80.0); PLATELET COUNT 377 x10e3/uL (140-360); RED BLOOD COUNT 3.16 x10e6/uL (3.6-5.1); RED CELL DISTRIBUTION WIDTH 13.4 % (11.7-14.4); WHITE BLOOD COUNT 10.19 x10e3/uL (4.8-10.8)
[2024-11-13 06:49] LABS: ANION GAP 12.2 mmol/L (8-16); CALCIUM 8.2 mg/dL (8.4-10.2); CREATININE, SERUM 0.61 mg/dL (0.57-1.11); POTASSIUM 4.2 mmol/L (3.5-5.1)
[2024-11-13 08:44] VITALS: BP 92/66; PULSE 71; RESP 19; TEMP 99.1; O2SAT 97
[2024-11-13] MEDS: PANTOPRAZOLE SOD 40 MG TABEC PO SCH (08:52)
[2024-11-13] MEDS: PREDNISONE 5 MG TAB PO SCH (08:53)
[2024-11-13] MEDS: FOLIC ACID 1 MG TAB PO SCH (08:54)
[2024-11-13] MEDS: AMLODIPINE BESYLATE 5 MG TAB PO SCH (09:00)
[2024-11-13] MEDS ORDERED: BUPROPION HCL 200 MG PO SCH (09:00)
[2024-11-13] MEDS: LISINOPRIL 20 MG TAB PO SCH (09:00)
[2024-11-13 09:02] VITALS: BP 92/66; PULSE 71; RESP 19; TEMP 99.1; O2SAT 97
[2024-11-13 11:10] VITALS: BP 110/72; PULSE 68; RESP 19; TEMP 99.7; O2SAT 99
[2024-11-13 20:00] VITALS: BP 112/65; PULSE 61; RESP 19; TEMP 97.2; O2SAT 97
[2024-11-14] VITALS (8 sets, daily range): BP systolic 95–112; BP diastolic 60–69; PULSE 61–70; RESP 17–20; TEMP 96.8–98.7; O2SAT 96–100
[2024-11-14] MEDS: HYDROCODONE/APAP 10MG-325MG TAB PO PRN (06:33)
[2024-11-15] VITALS (8 sets, daily range): BP systolic 92–114; BP diastolic 59–75; PULSE 64–83; RESP 18–20; TEMP 96.8–99; O2SAT 94–100
[2024-11-15] MEDS ORDERED: ACETAMINOPHEN 1000 MG/100 ML 100 ML IV ONE (14:29)
[2024-11-15] MEDS ORDERED: FENTANYL CITRATE/PF 100MCG/2 ML INJ ONE ×2 (14:29→16:29)
[2024-11-15] MEDS ORDERED: SEVOFLURANE INHAL SOLN 250 ML PEN BTL ONE (14:29)
[2024-11-15] MEDS ORDERED: LIDOCAINE HCL 2% LOCAL INJ 5 ML SDV VIAL INJ ONE ×2 (14:29→16:29)
[2024-11-15] MEDS ORDERED: PROPOFOL IV EMULSION 10 MG/ML 20 ML VIAL ONE ×2 (14:29→16:29)
[2024-11-15] MEDS ORDERED: EPHEDRINE SULFATE INJ 50 MG/ML VIAL ONE (15:45)
[2024-11-15] MEDS ORDERED: ONDANSETRON HCL INJ 2MG/ML 2ML 2 MG/ML VIAL ONE (16:28)
[2024-11-15] MEDS ORDERED: METOCLOPRAMIDE HCL 10 MG/2ML VIAL ONE (16:28)
[2024-11-15] MEDS: LORAZEPAM 0.5 MG TAB PO PRN (21:50)
[2024-11-16] VITALS (7 sets, daily range): BP systolic 100–129; BP diastolic 58–96; PULSE 76–114; RESP 18–20; TEMP 98.1–99.4; O2SAT 92–100
[2024-11-16] MEDS ORDERED: ONDANSETRON HCL 4 MG ORAL DISINTEGRATING TAB PO PRN (08:45)
[2024-11-16] MEDS: FLUCONAZOLE 100 MG TAB PO ONE (09:00)
[2024-11-17 01:12] VITALS: BP 110/72; PULSE 72; RESP 16; TEMP 97.9; O2SAT 98
[2024-11-17 05:11] VITALS: BP 123/68; PULSE 51; RESP 19; TEMP 97; O2SAT 100
[2024-11-17 08:28] VITALS: BP 111/80; PULSE 69; RESP 18; TEMP 97.9; O2SAT 95
[2024-11-17] MEDS: FLUCONAZOLE 100 MG TAB PO SCH (09:44)
[2024-11-17 09:46] VITALS: BP 111/70
== END 2024-11-17 10:43 | disposition home or self-care (01) | DRG 699 ==
LOC: ER 12:53 → ERHOLD 14:59 → MED/SURG2 17:04
PROVIDERS: ADMIT Internal Medicine; ATTEND Internal Medicine
PROC: 0UJH7ZZ Inspection of Vagina and Cul-de-sac, Via Natural or Artificial Opening (ICD-10-PCS; 2024-11-15)
PROC: BT141ZZ Fluoroscopy of Kidneys, Ureters and Bladder using Low Osmolar Contrast (ICD-10-PCS; 2024-11-15)
PROC: 0TP98DZ Removal of Intraluminal Device from Ureter, Via Natural or Artificial Opening Endoscopic (ICD-10-PCS; principal; 2024-11-15 15:35)
PROC: 0TP98DZ Removal of Intraluminal Device from Ureter, Via Natural or Artificial Opening Endoscopic (ICD-10-PCS; 2024-11-15 15:35)
DX: T83.593A Infection and inflammatory reaction due to other urinary stents, initial encounter (principal); B37.49 Other urogenital candidiasis; N13.6 Pyonephrosis; N12 Tubulo-interstitial nephritis, not specified as acute or chronic; T83.511A Infection and inflammatory reaction due to indwelling urethral catheter, initial encounter; D64.9 Anemia, unspecified; I10 Essential (primary) hypertension; E78.5 Hyperlipidemia, unspecified; R31.0 Gross hematuria; R33.9 Retention of urine, unspecified; K44.9 Diaphragmatic hernia without obstruction or gangrene; R53.81 Other malaise; G89.4 Chronic pain syndrome; K59.00 Constipation, unspecified; M06.9 Rheumatoid arthritis, unspecified; B96.20 Unspecified Escherichia coli [E. coli] as the cause of diseases classified elsewhere; Y83.1 Surgical operation with implant of artificial internal device as the cause of abnormal reaction of the patient, or of later complication, without mention of misadventure at the time of the procedure; Z79.01 Long term (current) use of anticoagulants; Z79.52 Long term (current) use of systemic steroids; Z86.718 Personal history of other venous thrombosis and embolism; Z96.0 Presence of urogenital implants; Z85.43 Personal history of malignant neoplasm of ovary; Z90.710 Acquired absence of both cervix and uterus; Z90.722 Acquired absence of ovaries, bilateral; Z90.79 Acquired absence of other genital organ(s); Z88.1 Allergy status to other antibiotic agents; Z88.6 Allergy status to analgesic agent; Z91.018 Allergy to other foods; Z87.891 Personal history of nicotine dependence; E66.9 Obesity, unspecified; Z68.26 Body mass index [BMI] 26.0-26.9, adult
CPT/HCPCS: 36415; 71045; 74176; 74420; 80048; 80053; 81001; 82550; 83605; 83690; 83735; 84484; 85025; 85610; 85730; 87040; 87086; 99284; C1769; J0696; J1171; J1450; J1650; J2003; J2270; J2405; J2765; J7030; J7050; J7512

== ENCOUNTER 2025-07-08 12:56 | Inpatient (IN) | payer MEDICARE ==
[~2025-07-08] VITALS: Ht 165.1 cm; Wt 78.2 kg
[2025-07-08] VITALS (7 sets, daily range): BP systolic 127–146; BP diastolic 74–105; PULSE 71–100; RESP 15–18; TEMP 97.4–98.6; O2SAT 89–100
[~2025-07-08 12:56] MED LIST changes: +ELIQUIS5 MG PO; +NITROFURANTOIN100 MG PO; +SULFASALAZINE500 MG PO
[2025-07-08] MEDS ORDERED: ZETIA10 MG PO (13:20)
[2025-07-08 13:38] LABS: BASOPHILS % 0.2 % (0.0-1.0); EOSINOPHILS % 0.9 % (0.0-6.0); LYMPHOCYTES % 15.0 % (18.0-39.1); MONOCYTES % 7.5 % (4.4-11.3); NEUTROPHILS % 75.9 % (38.7-80.0); RED CELL DISTRIBUTION WIDTH 12.6 % (11.7-14.4)
[2025-07-08 13:56] LABS: LEUKOCYTE ESTERASE ,URINE SMALL (NEGATIVE); PROTEIN,URINE DIPSTICK NEGATIVE (NEGATIVE)
[2025-07-08 13:57] LABS: URINE UROBILINOGEN 0.2 mg/dL (0.2 - 1)
[2025-07-08 13:58] LABS: WBC,URINE (MAN) 21-50 /HPF (0-5)
[2025-07-08 13:59] LABS: EPITHELIAL CELLS,URINE FEW /LPF
[2025-07-08 14:00] LABS: EST GLOMERULAR FILTRATION RATE 69.0 ML/MIN (>=60)
[2025-07-08 15:38] LABS: EST GLOMERULAR FILTRATION RATE 80.0 ML/MIN (>=60)
[2025-07-08] MEDS ORDERED: ONDANSETRON HCL INJ 2MG/ML 2ML 2 MG/ML VIAL IV PRN (16:15)
[2025-07-08] MEDS: LACTATED RINGER'S 1,000 ML INJ SCH (16:30)
[2025-07-08] MEDS ORDERED: HYDRALAZINE HCL 20 MG/ML VIAL IV PRN (16:45)
[2025-07-08] MEDS ORDERED: SIMETHICONE 80 MG CHEW PO PRN (16:45)
[2025-07-08] MEDS ORDERED: POTASSIUM CHLORIDE 20 MEQ TAB CR PO PRN (16:45)
[2025-07-08] MEDS ORDERED: ALBUTEROL/IPRATROPIUM 3 ML NEB NEB PRN (16:45)
[2025-07-08] MEDS ORDERED: DOCUSATE SODIUM 100 MG CAP PO PRN (16:45)
[2025-07-08] MEDS ORDERED: MELATONIN 5 MG TABLET PO PRN (16:45)
[2025-07-08] MEDS ORDERED: DIPHENHYDRAMINE HCL 25 MG CAP PO PRN (16:45)
[2025-07-08] MEDS ORDERED: LIDOCAINE 4% PATCH TP PRN (16:45)
[2025-07-08] MEDS ORDERED: DEXTROSE 50% SYRINGE 50 ML IV PRN (16:45)
[2025-07-08] MEDS: CEFTRIAXONE 1 GM VIAL IM ONE (16:52)
[2025-07-08 16:59] LABS: OSMOLALITY,SERUM 242 mOsm/kg (278-305)
[2025-07-08] MEDS: ENOXAPARIN SOD INJ 40 MG/0.4 ML SYR SC SCH (17:04)
[2025-07-08] MEDS: SOD POLYSTYRENE SULFONATE SUSP 15 GM/60 ML BTL PO ONE (17:04)
[2025-07-08] MEDS: SODIUM BICARBONATE 650 MG TAB PO SCH (17:05)
[2025-07-08] MEDS: GABAPENTIN 100 MG CAP PO SCH (21:27)
[2025-07-08] MEDS: BENZONATATE 100 MG CAP PO PRN (21:27)
[2025-07-08 21:52] LABS: EST GLOMERULAR FILTRATION RATE 89.0 ML/MIN (>=60)
[2025-07-09] VITALS (18 sets, daily range): BP systolic 116–157; BP diastolic 69–93; PULSE 62–99; RESP 12–27; TEMP 97.4–98.6; O2SAT 88–99
[2025-07-09] MEDS: DEXTROSE 5% 1,000 ML IV SCH (03:27)
[2025-07-09 06:30] LABS: BASOPHILS % 0.3 % (0.0-1.0); EOSINOPHILS % 2.6 % (0.0-6.0); LYMPHOCYTES % 26.5 % (18.0-39.1); MONOCYTES % 10.6 % (4.4-11.3); NEUTROPHILS % 59.4 % (38.7-80.0); RED CELL DISTRIBUTION WIDTH 12.5 % (11.7-14.4)
[2025-07-09 07:05] LABS: CHOL/HDL RATIO 3.1 (3.0-3.6); EST GLOMERULAR FILTRATION RATE 98.0 ML/MIN (>=60); LDL CHOLESTEROL 89.0 MG/DL (60-130); PHOSPHORUS 3.0 MG/DL (2.3-4.7)
[2025-07-09] MEDS: MONTELUKAST SODIUM 10 MG TAB PO SCH (08:20)
[2025-07-09] MEDS: PANTOPRAZOLE SOD 40 MG TABEC PO SCH (08:20)
[2025-07-09] MEDS: EZETIMIBE 10 MG TAB PO SCH (08:20)
[2025-07-09] MEDS: NICOTINE 21 MG/EA PATCH TOP SCH (08:21)
[2025-07-09] MEDS: GEMFIBROZIL 600 MG TAB PO SCH (08:40)
[2025-07-09] MEDS ORDERED: PANTOPRAZOLE SOD 40 MG TABEC PO SCH (09:00)
[2025-07-09] MEDS: ACETAMINOPHEN 325 MG TAB PO PRN (13:59)
[2025-07-09] MEDS ORDERED: HYDROCODONE/APAP 10MG-325MG TAB PO PRN (15:15)
[2025-07-09] MEDS: METHOCARBAMOL 750 MG TAB PO PRN (15:28)
[2025-07-09] MEDS: HYDROCODONE/APAP 10MG-325MG TAB PO PRN (15:33)
[2025-07-09] MEDS: SODIUM CHLORIDE 0.45% 1,000 ML IV SCH (19:20)
[2025-07-09] MEDS: PREGABALIN 75 MG CAP PO SCH (20:03)
[2025-07-10] VITALS (11 sets, daily range): BP systolic 118–145; BP diastolic 63–91; PULSE 64–92; RESP 18–20; TEMP 97–99.1; O2SAT 94–99
[2025-07-10 05:30] LABS: BASOPHILS % 0.3 % (0.0-1.0); EOSINOPHILS % 5.0 % (0.0-6.0); LYMPHOCYTES % 36.4 % (18.0-39.1); MONOCYTES % 10.2 % (4.4-11.3); NEUTROPHILS % 47.4 % (38.7-80.0); RED CELL DISTRIBUTION WIDTH 12.5 % (11.7-14.4)
[2025-07-10 06:05] LABS: EST GLOMERULAR FILTRATION RATE 99.0 ML/MIN (>=60)
[2025-07-10] MEDS: SULFASALAZINE 500 MG TAB PO SCH (11:03)
[2025-07-10] MEDS: ONDANSETRON HCL INJ 2MG/ML 2ML 2 MG/ML VIAL IV PRN (14:24)
[2025-07-10] MEDS: POTASSIUM CHLORIDE 20 MEQ TAB CR PO STA (16:59)
[2025-07-11] VITALS: BP 106/66; PULSE 78; RESP 18; TEMP 98.5; O2SAT 98
[2025-07-11 04:00] VITALS: BP 109/79; PULSE 77; RESP 18; TEMP 98.6; O2SAT 97
[2025-07-11 06:17] LABS: EST GLOMERULAR FILTRATION RATE 98.0 ML/MIN (>=60)
[2025-07-11 08:00] VITALS: BP 115/67; PULSE 70; RESP 20; TEMP 98.3; O2SAT 97
[2025-07-11 08:41] VITALS: PULSE 77; RESP 18; O2SAT 97
[2025-07-11 09:00] VITALS: BP 115/62; PULSE 70; RESP 18; TEMP 98.2; O2SAT 97
[2025-07-11 12:00] VITALS: BP 141/69; PULSE 88; RESP 19; TEMP 98.5; O2SAT 97
[2025-07-11] MEDS ORDERED: SODIUM CHLORIDE 1 GM TAB PO SCH (12:45)
[2025-07-23 06:12] LABS: ABG BASE EXCESS -2.0 mmol/L (-2 - 3); ABG HCO3 19 mmol/L (22-26); ABG OXYGEN SATURATION 100.0 % (95-98); ABG PCO2 17 mmHg (35-45); ABG PH 7.65 (7.35-7.45); ABG PO2 171 mmHg (80-105); ABG TCO2 19
== END 2025-07-11 14:12 | disposition home or self-care (01) | DRG 699 ==
LOC: ER 13:10 → ERHOLD 16:11 → MED/SURG2 17:25 → ICU 17:53 → MED/SURG2 07-09 21:35
PROVIDERS: ADMIT Internal Medicine; ATTEND Internal Medicine
PROC: 0T9B70Z Drainage of Bladder with Drainage Device, Via Natural or Artificial Opening (ICD-10-PCS; 2025-07-08)
PROC: 4A033R1 Measurement of Arterial Saturation, Peripheral, Percutaneous Approach (ICD-10-PCS; principal; 2025-07-10)
DX: T83.511A Infection and inflammatory reaction due to indwelling urethral catheter, initial encounter (principal); E22.2 Syndrome of inappropriate secretion of antidiuretic hormone; E87.20 Acidosis, unspecified; N39.0 Urinary tract infection, site not specified; I10 Essential (primary) hypertension; E78.5 Hyperlipidemia, unspecified; E87.5 Hyperkalemia; R31.0 Gross hematuria; R33.9 Retention of urine, unspecified; M54.9 Dorsalgia, unspecified; M06.9 Rheumatoid arthritis, unspecified; Y84.6 Urinary catheterization as the cause of abnormal reaction of the patient, or of later complication, without mention of misadventure at the time of the procedure; T43.295A Adverse effect of other antidepressants, initial encounter; T43.215A Adverse effect of selective serotonin and norepinephrine reuptake inhibitors, initial encounter; Z79.52 Long term (current) use of systemic steroids; Z88.1 Allergy status to other antibiotic agents; Z88.6 Allergy status to analgesic agent; Z91.018 Allergy to other foods
CPT/HCPCS: 36415; 51700; 76770; 80048; 80061; 81001; 82805; 82947; 83735; 83930; 83935; 84100; 84295; 84300; 84520; 84550; 85025; 87086; 93005; 94799; 99284; J0696; J1650; J2405; J2470; J7070